=== PATIENT | female | born 2000 ===

== ENCOUNTER 2018-10-24 14:34 | Outpatient (CLI) | payer OTHER ==
[~2018-10-24] VITALS: Ht 154.9 cm; Wt 52.2 kg
== END 2018-10-24 14:50 | disposition home or self-care (01) ==
LOC: OFIC 805 14:34
DX: G47.33 Obstructive sleep apnea (adult) (pediatric) (principal); R22.1 Localized swelling, mass and lump, neck; J30.89 Other allergic rhinitis; J03.81 Acute recurrent tonsillitis due to other specified organisms